=== PATIENT | female | born 1950 | race Caucasian/White ===

== ENCOUNTER → 2017-01-14 | Outpatient (CLI) | payer MEDICARE ==
[2017-01-14 08:03] LABS: Basophils # (A) 0.1 k/uL (0-0.2); Basophils % (A) 1 %; CH 23.9; CHCM 30.9; Eosinophils # (A) 0.1 k/uL (0-0.7); Eosinophils % (A) 2 %; HCT 36.8 % (34.0-46.0); HDW 2.65; HGB 11.6 gm/dL (11.4-16.0); Hypochromasia Moderate; Luc # (Auto) 0.19; Luc % (Auto) 3; Lymphocytes # (A) 1.1 k/uL (1.0-4.8); Lymphocytes % (A) 17 %; MCH 24.4 pg (25.0-35.0); MCHC 31.4 g/dL (31.0-37.0); MCV 77.7 fL (80.0-100.0); Mean Platelet Volume 6.2; Microcytosis Slight; Monocytes # (A) 0.5 k/uL (0-1.0); Monocytes % (A) 8 %; Neutrophils # (A) 4.2 k/uL (1.3-7.7); Neutrophils % (A) 68 %; RBC 4.74 m/uL (3.80-5.40); RDW 15.7 % (11.5-15.5); WBC 6.1 k/uL (3.8-10.6); WBC (Perox) 6.38
[2017-01-14 08:24] LABS: ALT 22 U/L (9-52); AST 19 U/L (14-36); Alkaline Phosphatase 82 U/L (38-126); Anion Gap 10 mmol/L; Blood Urea Nitrogen 22 mg/dL (7-17); Carbon Dioxide 25 mmol/L (22-30); Chloride 105 mmol/L (98-107); Cholesterol 256 mg/dL (<200); Glucose 95 mg/dL (74-99); HDL Cholesterol 67 mg/dL (40-60); Non-African American GFR(MDRD) >60 (>60 ml/min/1.73 sqM); Potassium 4.8 mmol/L (3.5-5.1); Sodium 140 mmol/L (137-145); Total Bilirubin 0.5 mg/dL (0.2-1.3); Total Protein 7.4 g/dL (6.3-8.2); Triglycerides 170 mg/dL (<150)
--- NOTE | 2017-01-15 13:21 | MM ---
Reason for exam: screening (asymptomatic). Last mammogram was performed 1 year ago. History: Patient is postmenopausal, has history of breast cancer at age 56, and had previous chest radiation therapy at age 56. Family history of breast cancer in mother at age 70. Benign US LT VAD breast biopsy of the left breast, November 18, 2012. Radiation therapy of the right breast, March 2007. Excisional biopsy of the right breast, January 09, 2007. Malignant lumpectomy of the right breast, January 09, 2007. Malignant right mammotome panel of the right breast, December 24, 2006. Took estrogen for 4 years beginning at age 47. Took progesterone for 4 years beginning at age 47. Taking antineoplastic for 4 years 6 months beginning at age 56. Physical Findings: A clinical breast exam by your physician is recommended on an annual basis and results should be correlated with mammographic findings. MG 3D Screening Mammo W/Cad Bilateral CC and MLO view(s) were taken. XCCL view(s) were taken of the right breast. Prior study comparison: January 01, 2016, bilateral MG 3d screening mammo w/cad. December 26, 2014, bilateral MG screening mammo w CAD. December 22, 2013, bilateral MG screening mammo w CAD. There are scattered fibroglandular densities. No significant changes when compared with prior studies. ASSESSMENT: Benign, BI-RAD 2 RECOMMENDATION: Follow-up diagnostic mammogram of both breasts in 1 year.
[2017-01-16 14:29] LABS: % Iron Saturation 8.7 % (20-50)
== END | disposition home or self-care (01) ==
LOC: RADMAMWWP 07:01
PROVIDERS: ATTEND Family Medicine
DX: Z12.31 Encounter for screening mammogram for malignant neoplasm of breast (principal); Z00.00 Encounter for general adult medical examination without abnormal findings; E03.9 Hypothyroidism, unspecified
CPT/HCPCS: 84439; 80061; 80053; 84443; 85025; 82306; 77063; G0202; 82728; 83540; 83550

== ENCOUNTER → 2017-07-15 | Outpatient (CLI) | payer MEDICARE ==
--- NOTE | 2017-07-15 08:22 | US ---
EXAMINATION TYPE: US pelvic complete DATE OF EXAM: 07/15/2017 COMPARISON: NONE CLINICAL HISTORY: D64.9 ANEMIA. low hemoglobin, no symptoms TECHNIQUE: TA Date of LMP: 25yrs ago EXAM MEASUREMENTS: Uterus: 2.3 x 3.6 x 2.3 cm Endometrial Stripe: 0.4 cm Right Ovary: 1.8 x 1.0 x 1.2 cm Left Ovary: 1.1 x 0.8 x 0.8 cm 1. Uterus: Anteverted calcifications seen within mature uterus 2. Endometrium: wnl 3. Right Ovary: atrophic, wnl 4. Left Ovary: atrophic, wnl 5. Bilateral Adnexa: wnl 6. Posterior cul-de-sac: wnl IMPRESSION: 1. Nonspecific uterine calcification with no definite acute process.
== END ==
LOC: RADUSWWP 06:47
PROVIDERS: ATTEND Internal Medicine
DX: N85.8 Other specified noninflammatory disorders of uterus (principal); D64.9 Anemia, unspecified
CPT/HCPCS: 76856

== ENCOUNTER → 2018-01-15 | Outpatient (CLI) | payer MEDICARE ==
--- NOTE | 2018-01-15 14:39 | MM ---
Reason for exam: screening (asymptomatic). Last mammogram was performed 1 year ago. History: Patient is postmenopausal, has history of breast cancer at age 56, and had previous chest radiation therapy at age 56. Family history of breast cancer in mother at age 70. Benign US LT VAD breast biopsy of the left breast, November 18, 2012. Radiation therapy of the right breast, March 2007. Excisional biopsy of the right breast, January 09, 2007. Malignant lumpectomy of the right breast, January 09, 2007. Malignant right mammotome panel of the right breast, December 24, 2006. Took estrogen for 4 years beginning at age 47. Took progesterone for 4 years beginning at age 47. Taking antineoplastic for 4 years 6 months beginning at age 56. Physical Findings: A clinical breast exam by your physician is recommended on an annual basis and results should be correlated with mammographic findings. MG 3D Diag Mammo W/Cad JAINYA Bilateral CC and MLO view(s) were taken. Prior study comparison: January 14, 2017, bilateral MG 3d screening mammo w/cad. January 01, 2016, bilateral MG 3d screening mammo w/cad. The breast tissue is heterogeneously dense. This may lower the sensitivity of mammography. Finding #1: Architectural distortion in the right breast consistent with known lumpectomy changes. Finding #2: There are typically benign round calcifications in both breasts.There is no discrete abnormality. These results were verbally communicated with the patient and result sheet given to the patient on 01/15/18. ASSESSMENT: Benign, BI-RAD 2 RECOMMENDATION: Follow-up diagnostic mammogram of both breasts in 1 year.
== END | disposition home or self-care (01) ==
LOC: RADMAMWWP 09:21
PROVIDERS: ATTEND Family Medicine
DX: Z08 Encounter for follow-up examination after completed treatment for malignant neoplasm (principal); Z85.3 Personal history of malignant neoplasm of breast
CPT/HCPCS: 77066; G0279; 77062

== ENCOUNTER → 2019-02-23 | Outpatient (CLI) | payer MEDICARE ==
--- NOTE | 2019-02-24 08:17 | MM ---
Reason for exam: additional evaluation requested from prior study. Last mammogram was performed 1 year and 1 month ago. History: Patient is postmenopausal, has history of breast cancer at age 56, and had previous chest radiation therapy at age 56. Family history of breast cancer in mother at age 70. Benign US LT VAD breast biopsy of the left breast, November 18, 2012. Radiation therapy of the right breast, March 2007. Excisional biopsy of the right breast, January 09, 2007. Malignant lumpectomy of the right breast, January 09, 2007. Malignant right mammotome panel of the right breast, December 24, 2006. Took estrogen for 4 years beginning at age 47. Took progesterone for 4 years beginning at age 47. Taking antineoplastic for 4 years 6 months beginning at age 56. Physical Findings: Nurse did not find any significant physical abnormalities on exam. MG 3D Diag Mammo W/Cad JANIYA Bilateral CC and MLO view(s) were taken. Prior study comparison: January 15, 2018, bilateral MG 3d diag mammo w/cad JANIYA. January 14, 2017, bilateral MG 3d screening mammo w/cad. The breast tissue is heterogeneously dense. This may lower the sensitivity of mammography. Finding #1: Architectural distortion in the right breast consistent with known excisional changes. Finding #2: There are typically benign round calcifications in both breasts. There is no discrete abnormality. These results were verbally communicated with the patient and result sheet given to the patient on 02/23/19. ASSESSMENT: Benign, BI-RAD 2 RECOMMENDATION: Follow-up diagnostic mammogram of both breasts in 1 year.
== END | disposition home or self-care (01) ==
LOC: RADMAMWWP 13:30
PROVIDERS: ATTEND Family Medicine
DX: Z08 Encounter for follow-up examination after completed treatment for malignant neoplasm (principal); Z85.3 Personal history of malignant neoplasm of breast
CPT/HCPCS: 77066; G0279; 77062

== ENCOUNTER → 2020-02-25 | Outpatient (CLI) | payer MEDICARE ==
--- NOTE | 2020-02-25 12:51 | MM ---
Reason for exam: additional evaluation requested from prior study. Last mammogram was performed 1 year ago. History: Patient is postmenopausal, has history of breast cancer at age 56, and had previous chest radiation therapy at age 56. Family history of breast cancer in mother at age 70. Benign US LT VAD breast biopsy of the left breast, November 18, 2012. Radiation therapy of the right breast, March 2007. Excisional biopsy of the right breast, January 09, 2007. Malignant lumpectomy of the right breast, January 09, 2007. Malignant right mammotome panel of the right breast, December 24, 2006. Took estrogen for 4 years beginning at age 47. Took progesterone for 4 years beginning at age 47. Taking antineoplastic for 4 years 6 months beginning at age 56. Physical Findings: Nurse did not find any significant physical abnormalities on exam. MG 3D Diag Mammo W/Cad JANIYA Bilateral CC and MLO view(s) were taken. Prior study comparison: February 23, 2019, bilateral MG 3d diag mammo w/cad JANIYA. January 15, 2018, bilateral MG 3d diag mammo w/cad JANIYA. The breast tissue is heterogeneously dense. This may lower the sensitivity of mammography. Benign appearing bilateral calcifications. There is chronic nodularity bilaterally. Post biopsy changes on right breast. These results were verbally communicated with the patient and result sheet given to the patient on 02/25/20. ASSESSMENT: Benign, BI-RAD 2 RECOMMENDATION: Routine screening mammogram of both breasts in 1 year.
== END | disposition home or self-care (01) ==
LOC: RADMAMWWP 10:07
PROVIDERS: ATTEND Family Medicine
DX: R92.8 Other abnormal and inconclusive findings on diagnostic imaging of breast (principal)
CPT/HCPCS: 77066; G0279; 77062

== ENCOUNTER → 2021-02-26 | Outpatient (CLI) | payer MEDICARE ==
--- NOTE | 2021-02-27 09:26 | MM ---
Reason for exam: screening (asymptomatic). Last mammogram was performed 1 year ago. History: Patient is postmenopausal, has history of breast cancer at age 56, and had previous chest radiation therapy at age 56. Family history of breast cancer in mother at age 70. Benign US LT VAD breast biopsy of the left breast, November 18, 2012. Radiation therapy of the right breast, March 2007. Excisional biopsy of the right breast, January 09, 2007. Malignant lumpectomy of the right breast, January 09, 2007. Malignant right mammotome panel of the right breast, December 24, 2006. Took hormonal contraceptives for 5 years. Took estrogen for 4 years beginning at age 47. Took progesterone for 4 years beginning at age 47. Taking antineoplastic for 4 years 9 months beginning at age 56. Physical Findings: A clinical breast exam by your physician is recommended on an annual basis and results should be correlated with mammographic findings. MG 3D Screening Mammo W/Cad Bilateral CC and MLO view(s) were taken. Prior study comparison: February 25, 2020, bilateral MG 3d diag mammo w/cad JANIYA. February 23, 2019, bilateral MG 3d diag mammo w/cad JANIYA. The breast tissue is heterogeneously dense. This may lower the sensitivity of mammography. Finding #1: There is irregular architectural distortion in the right breast consistent with previous surgery. Finding #2: There are typically benign calcifications in both breasts. ASSESSMENT: Benign, BI-RAD 2 RECOMMENDATION: Routine screening mammogram of both breasts in 1 year.
== END | disposition home or self-care (01) ==
LOC: RADMAMWWP 10:42
PROVIDERS: ATTEND Family Medicine
DX: Z12.31 Encounter for screening mammogram for malignant neoplasm of breast (principal); Z80.3 Family history of malignant neoplasm of breast
CPT/HCPCS: 77063; 77067

== ENCOUNTER → 2022-03-04 | Outpatient (CLI) | payer MEDICARE ==
--- NOTE | 2022-03-04 08:56 | USB ---
Patient History: Menarche at age 11. First Full-Term at age 19. Postmenopausal. Breast cancer, age 56. Previous chest radiation therapy at age 56. Estrogen for 4 years from age 47 until age 51. Progesterone for 4 years from age 47 until age 51. Patient used Hormonal Contraceptives for 5 years. 01/09/2007, Malignant Lumpectomy on the right side. 01/09/2007, Excisional Biopsy on the Right side. 11/18/2012, Benign Core Biopsy on the left side. 12/24/2006, Malignant Core Biopsy on the right side. 03/2007, Radiation Therapy on the right side. Mother had breast cancer, age 70. Technique: Method: Targeted. Prior Study Comparison: 02/25/2020 Bilateral Diagnostic Mammogram, [facility]. 02/26/2021 Bilateral Screening Mammogram, [facility]. 02/27/2022 Bilateral MG 3D screening mammo w/cad, [facility]. Findings: The axilla of the right breast was scanned. Electronically signed and approved by: Jose Armando Maldonado DO
== END | disposition home or self-care (01) ==
LOC: RADUSWWP 08:02
PROVIDERS: ATTEND Family Medicine
DX: R92.8 Other abnormal and inconclusive findings on diagnostic imaging of breast (principal)

== ENCOUNTER → 2023-03-03 | Outpatient (CLI) | payer MEDICARE ==
--- NOTE | 2023-03-04 10:45 | MM ---
Reason for Exam: Hx of breast cancer, conservation therapy. Last screening mammogram was performed 12 month(s) ago. Patient History: Menarche at age 11. First Full-Term at age 19. Postmenopausal. Breast cancer, left, age 56. Previous chest radiation therapy at age 56. Estrogen for 4 years from age 47 until age 51. Progesterone for 4 years from age 47 until age 51. Patient used Hormonal Contraceptives for 5 years. 01/09/2007, Excisional Biopsy on the Right side. 11/18/2012, Benign Core Biopsy on the left side. 12/24/2006, Malignant Core Biopsy on the right side. 03/2007, Radiation Therapy on the right side. Niece had ovarian cancer under age 50. Mother had breast cancer, age 70. Prior Study Comparison: 12/26/2014 Bilateral Screening Mammogram, [facility]. 01/01/2016 Bilateral Screening Mammogram, [facility]. 01/14/2017 Bilateral Screening Mammogram, [facility]. 01/15/2018 Bilateral Diagnostic Mammogram, [facility]. 02/23/2019 Bilateral Diagnostic Mammogram, [facility]. 02/25/2020 Bilateral Diagnostic Mammogram, [facility]. 02/26/2021 Bilateral Screening Mammogram, [facility]. 02/27/2022 Bilateral MG 3D screening mammo w/cad, [facility]. Tissue Density: The breast tissue is heterogeneously dense. This may lower the sensitivity of mammography. Findings: Analyzed By CAD. There is no suspicious group of microcalcifications or new suspicious mass in either breast. Benign-appearing calcifications bilaterally. Overall Assessment: Benign, BI-RAD 2 Management: Screening Mammogram of both breasts in [address] [facility] will attempt to contact patient to return for supplemental views and ultrasound if indicated. Patient should continue monthly self-breast exams. A clinical breast exam by your physician is recommended on an annual basis. This exam should not preclude additional follow-up of suspicious palpable abnormalities. Note on Iris scores and lifetime risk: 1. A Iris score greater than 3% is considered moderate risk. If this is the case, consider specialist referral to assess eligibility for a risk reducing agent. 2. If overall lifetime risk for the development of breast cancer is 20% or higher, the patient may qualify for future screening with alternating mammogram and breast MRI. Electronically signed and approved by: Jose Armando Maldonado DO
== END | disposition home or self-care (01) ==
LOC: RADMAMWWP 09:45
PROVIDERS: ATTEND Family Medicine
DX: Z12.31 Encounter for screening mammogram for malignant neoplasm of breast (principal); Z80.3 Family history of malignant neoplasm of breast; Z85.3 Personal history of malignant neoplasm of breast; Z78.0 Asymptomatic menopausal state
CPT/HCPCS: 77063; 77067

== ENCOUNTER → 2024-03-04 | Outpatient (CLI) | payer MEDICARE ==
--- NOTE | 2024-03-10 08:32 | MM ---
Reason for Exam: Screening (asymptomatic). Last screening mammogram was performed 12 month(s) ago. Patient History: Menarche at age 11. First Full-Term at age 19. Postmenopausal. Breast cancer, left, age 56. Previous chest radiation therapy at age 56. Estrogen for 4 years from age 47 until age 51. Progesterone for 4 years from age 47 until age 51. Patient used Hormonal Contraceptives for 5 years. 01/09/2007, Malignant Lumpectomy on the right side. 01/09/2007, Excisional Biopsy on the Right side. 11/18/2012, Benign Core Biopsy on the left side. 12/24/2006, Malignant Core Biopsy on the right side. 03/2007, Radiation Therapy on the right side. Niece had ovarian cancer under age 50. Mother had breast cancer, age 70. Prior Study Comparison: 02/26/2021 Bilateral Screening Mammogram, [facility]. 02/27/2022 Bilateral MG 3D screening mammo w/cad, [facility]. 03/03/2023 Bilateral MG 3D screening mammo w/cad, [facility]. Tissue Density: There are scattered areas of fibroglandular density. Findings: Analyzed By CAD. Right breast surgical clips. Right breast: There is no suspicious group of microcalcifications or new suspicious mass. Benign-appearing calcifications right breast. Left breast: There is no suspicious group of microcalcifications or new suspicious mass. Benign-appearing calcifications left breast. Overall Assessment: Benign, BI-RAD 2 Management: Screening Mammogram of both breasts in [address] [facility] will attempt to contact patient to return for supplemental views and ultrasound if indicated. Patient should continue monthly self-breast exams. A clinical breast exam by your physician is recommended on an annual basis. This exam should not preclude additional follow-up of suspicious palpable abnormalities. Note on Riis scores and lifetime risk: 1. A Iris score greater than 3% is considered moderate risk. If this is the case, consider specialist referral to assess eligibility for a risk reducing agent. 2. If overall lifetime risk for the development of breast cancer is 20% or higher, the patient may qualify for future screening with alternating mammogram and breast MRI. Electronically signed and approved by: Jose Armando Maldonado DO
== END | disposition home or self-care (01) ==
LOC: RADMAMWWP 09:42
PROVIDERS: ATTEND Family Medicine
DX: Z12.31 Encounter for screening mammogram for malignant neoplasm of breast
CPT/HCPCS: 77063; 77067